=== PATIENT | female | born 1950 | race African-American/Black ===

== ENCOUNTER 2024-10-28 13:54 | Inpatient (IN) | payer MEDICARE, OTHER ==
[~2024-10-28] VITALS: Ht 149.9 cm; Wt 113.5 kg
[2024-10-28 16:03] LABS: BASOPHILS % (AUTO) 0.2 % (0.0-2.0); EOSINOPHILS # (AUTO) 0.1 K/uL (0.0-0.7); EOSINOPHILS % (AUTO) 1.4 % (0.0-6.0); HEMATOCRIT 41 % (33-45); HEMOGLOBIN 12.5 g/dL (11.5-14.8); LYMPHOCYTES % (AUTO) 11.5 % (20.0-44.0); MEAN CORPUSCULAR HEMOGLOBIN 23 PG (26.0-33.0); MEAN CORPUSCULAR HGB CONC 31 g/dl (31.0-36.0); MONOCYTES % (AUTO) 11.2 % (2.0-12.0); NEUTROPHILS # (AUTO) 6.9 K/uL (1.8-8.9); NEUTROPHILS % (AUTO) 75.7 % (43.0-81.0); PLATELET COUNT (AUTO) 165 K/uL (150-450); RED BLOOD CELL COUNT(AUTO) 5.48 MIL/uL (4.0-5.2); WHITE BLOOD COUNT (AUTO) 9.1 K/uL (4.3-11.0)
[2024-10-28 16:04] LABS: MEAN CORPUSCULAR VOLUME 74 fL (82-100)
[2024-10-28 16:11] LABS: CALCIUM, SERUM 8.9 mg/dL (8.5-10.1); CARBON DIOXIDE 29 mmol/L (21-32); CHLORIDE 105 mmol/L (98-107); CREATININE 1.6 mg/dL (0.6-1.3); GLUCOSE 76 mg/dL (74-106); SODIUM SERUM 138 mmol/L (136-145); UREA NITROGEN, BLOOD 23 mg/dL (7-18)
[2024-10-28 16:17] LABS: ALANINE AMINOTRANSFERASE 30 U/L (12-78); ALKALINE PHOSPHATASE 110 U/L (46-116); ASPARTATE AMINOTRANSFERASE 22 U/L (15-37); BILIRUBIN,DIRECT 0.1 mg/dL (0.0-0.2); BILIRUBIN,TOTAL 0.3 mg/dL (0.2-1.0); INR 0.94 (0.91-1.10); PARTIAL THROMBOPLASTIN TIME 23.4 SEC (24.3-34.3); PROTHROMBIN TIME 9.7 SECS (9.2-11.1); TOTAL PROTEIN, SERUM 7.9 g/dL (6.4-8.2)
[2024-10-28 16:51] LABS: LYMPHOCYTES % (MANUAL) 18 % (16-48); NEUTROPHILS % (MANUAL) 74 (42-76)
[2024-10-28 16:52] LABS: EOSINOPHILS % (MANUAL) 1 % (0-4); MONOCYTES % (MANUAL) 7 % (0-11.0)
[2024-10-28 16:53] LABS: APPEARANCE,URINE CLEAR (CLEAR); BILIRUBIN,URINE MODERATE (NEGATIVE); BLOOD, URINE Negative Ery/uL (NEGATIVE); COLOR,URINE YELLOW (YELLOW); KETONES,URINE 15 mg/dL (NEGATIVE); LEUKOCYTE ESTERASE ,URINE Trace (NEGATIVE); PH,URINE 5.5 (5.0-8.0); PROTEIN,URINE 30 mg/dl (NEGATIVE); UGLUCOSE Negative (NEGATIVE); UROBILINOGEN,URINE 0.2 EU/dL (0.2)
[2024-10-28] MEDS ORDERED: ATOR20TA PO (16:53)
[2024-10-28] MEDS ORDERED: ACET325T53 PO (16:53)
[2024-10-28] MEDS ORDERED: DIVA250T PO (16:53)
[2024-10-28] MEDS ORDERED: HYDR12.55 PO (16:53)
[2024-10-28] MEDS ORDERED: MELA5TAB PO (16:53)
[2024-10-28] MEDS ORDERED: TRAZ-182 PO (16:53)
[2024-10-28] MEDS ORDERED: CHOL100043 PO (16:53)
[2024-10-28] MEDS ORDERED: LITH300T3 PO (16:53)
[2024-10-28] MEDS ORDERED: OLAN10TA3 PO (16:53)
[2024-10-28] MEDS ORDERED: METO50TA16 PO (16:53)
[2024-10-28 16:54] LABS: NITRITE, URINE NEGATIVE (NEGATIVE)
[2024-10-28 16:56] LABS: ADD URINE CULTURE NO; BACTERIA,URINE Few /HPF (None Seen); SQUAMOUS EPITHELIAL CELL,UR Few /HPF (None Seen)
[2024-10-28] MEDS ORDERED: ACETAMINOPHEN 325 MG TABLET PO PRN (19:30)
[2024-10-28] MEDS ORDERED: Z GUARD REMEDY 4 OZ OINT TP PRN (19:30)
[2024-10-28] MEDS ORDERED: ONDANSETRON HCL/PF 4 MG/2 ML VIAL IVP PRN (19:30)
[2024-10-28] MEDS: ENOXAPARIN SODIUM 40 MG/0.4 ML DISP.SYRIN SQ SCH (19:55)
[2024-10-28] MEDS: IV NS 0.9% 1,000 ML BAG IV ONE (19:57)
[2024-10-28 20:00] VITALS: BP 115/67; TEMP 97.9; O2SAT 97
[2024-10-28] MEDS: CEPHALEXIN MONOHYDRATE 250 MG/5 ML BOTTLE PO SCH (21:00)
[2024-10-28] MEDS: OLANZAPINE 10 MG TABLET PO SCH (21:00)
[2024-10-28] MEDS: CEFTRIAXONE 1GM BAG (ER ONLY) 50 ML IV ONE (21:35)
[2024-10-28] MEDS: CEFTRIAXONE 1 G in IV D5W 50 ML IV SCH (21:39)
[2024-10-28] MEDS: TRAZODONE 50 MG TABLET PO SCH (22:00)
[2024-10-28] MEDS: IV NS 0.9% 1,000 ML IV PRN (22:00)
[2024-10-28] MEDS: ATORVASTATIN 10 MG TABLET PO SCH (22:00)
[2024-10-29] VITALS: BP 114/52; TEMP 98.2; O2SAT 98
[2024-10-29 00:42] LABS: CALCIUM, SERUM 8.5 mg/dL (8.5-10.1); CREATININE 1.5 mg/dL (0.6-1.3); POTASSIUM 3.4 mmol/L (3.5-5.1)
[2024-10-29 04:00] VITALS: BP 103/64; TEMP 98.4; O2SAT 97
[2024-10-29 06:57] LABS: BASOPHILS % (AUTO) 0.1 % (0.0-2.0); EOSINOPHILS # (AUTO) 0.1 K/uL (0.0-0.7); EOSINOPHILS % (AUTO) 1.6 % (0.0-6.0); HEMATOCRIT 37 % (33-45); HEMOGLOBIN 11.3 g/dL (11.5-14.8); LYMPHOCYTES % (AUTO) 13.7 % (20.0-44.0); MEAN CORPUSCULAR HEMOGLOBIN 23 PG (26.0-33.0); MEAN CORPUSCULAR HGB CONC 30 g/dl (31.0-36.0); MEAN CORPUSCULAR VOLUME 75 fL (82-100); NEUTROPHILS % (AUTO) 70.6 % (43.0-81.0); PLATELET COUNT (AUTO) 137 K/uL (150-450); RED CELL DISTRIBUTION WIDTH 15.8 % (11.5-15.0); WHITE BLOOD COUNT (AUTO) 7.1 K/uL (4.3-11.0)
[2024-10-29] MEDS: IV NS 0.9% 1,000 ML IV PRN (07:11)
[2024-10-29 07:13] LABS: CALCIUM, SERUM 8.5 mg/dL (8.5-10.1); CREATININE 1.4 mg/dL (0.6-1.3); MAGNESIUM 2.1 mg/dL (1.8-2.4); PHOSPHORUS 2.9 mg/dL (2.5-4.9); POTASSIUM 3.5 mmol/L (3.5-5.1)
[2024-10-29 08:00] VITALS: BP 108/63; TEMP 97.3; O2SAT 97
[2024-10-29] MEDS: METOPROLOL TARTRATE 50 MG TABLET PO SCH (09:00)
[2024-10-29] MEDS: POTASSIUM CL. PREMIX PERIPHER. 50 ML IV SCH (10:12)
[2024-10-29 11:46] LABS: THYROID STIMULATING HORMONE 3.75 uIU/mL (0.358-3.74)
[2024-10-29 12:00] VITALS: O2SAT 95
[2024-10-29 16:00] VITALS: BP 93/38; TEMP 97.5; O2SAT 97
[2024-10-29 17:58] LABS: CALCIUM, SERUM 8.5 mg/dL (8.5-10.1); CREATININE 1.2 mg/dL (0.6-1.3); POTASSIUM 3.6 mmol/L (3.5-5.1)
[2024-10-29 20:00] VITALS: BP 120/60; TEMP 98.4; O2SAT 96
[2024-10-29] MEDS: ENOXAPARIN SODIUM 30 MG/0.3 ML DISP.SYRIN SQ SCH (20:41)
[2024-10-29 22:44] LABS: CALCIUM, SERUM 8.8 mg/dL (8.5-10.1); CREATININE 1.1 mg/dL (0.6-1.3); POTASSIUM 3.9 mmol/L (3.5-5.1)
[2024-10-30 01:39] LABS: CREATININE, URINE 160.1 MG/DL (30.0-125.0); URINE TOTAL PROTEIN 34.7 mg/dL (0-11.9)
[2024-10-30 04:00] VITALS: BP 126/64; TEMP 98.5; O2SAT 97
[2024-10-30 05:21] LABS: CALCIUM, SERUM 8.5 mg/dL (8.5-10.1); CREATININE 1.2 mg/dL (0.6-1.3); POTASSIUM 3.6 mmol/L (3.5-5.1)
[2024-10-30 07:30] VITALS: BP 121/63; TEMP 98.4; O2SAT 97
[2024-10-30 08:00] VITALS: BP 121/63; TEMP 98.4; O2SAT 97
[2024-10-30 09:01] LABS: ALBUMIN 2.9 g/dL (3.4-5.0); BILIRUBIN,TOTAL 0.2 mg/dL (0.2-1.0); CREATININE 1.1 mg/dL (0.6-1.3); MAGNESIUM 1.9 mg/dL (1.8-2.4); PHOSPHORUS 2.4 mg/dL (2.5-4.9); POTASSIUM 3.8 mmol/L (3.5-5.1); TOTAL PROTEIN, SERUM 7.2 g/dL (6.4-8.2)
[2024-10-30 10:54] LABS: BASOPHILS % (AUTO) 0.1 % (0.0-2.0); EOSINOPHILS # (AUTO) 0.1 K/uL (0.0-0.7); EOSINOPHILS % (AUTO) 0.9 % (0.0-6.0); HEMATOCRIT 38 % (33-45); LYMPHOCYTES # (AUTO) 0.6 K/uL (0.8-4.8); LYMPHOCYTES % (AUTO) 6.1 % (20.0-44.0); MEAN CORPUSCULAR HEMOGLOBIN 23 PG (26.0-33.0); MEAN CORPUSCULAR HGB CONC 31 g/dl (31.0-36.0); MEAN CORPUSCULAR VOLUME 75 fL (82-100); MONOCYTES # (AUTO) 1.3 K/uL (0.1-1.30); MONOCYTES % (AUTO) 14.4 % (2.0-12.0); NEUTROPHILS # (AUTO) 7.1 K/uL (1.8-8.9); NEUTROPHILS % (AUTO) 78.5 % (43.0-81.0); PLATELET COUNT (AUTO) 147 K/uL (150-450); RED BLOOD CELL COUNT(AUTO) 5.11 MIL/uL (4.0-5.2); RED CELL DISTRIBUTION WIDTH 15.9 % (11.5-15.0); WHITE BLOOD COUNT (AUTO) 9.1 K/uL (4.3-11.0)
[2024-10-30 16:00] VITALS: BP 102/79; TEMP 98.1; O2SAT 98
[2024-10-30] MEDS: Sodium Phosphate 15 MMOL in IV NS 0.9% 245 ML IV SCH (17:31)
[2024-10-30 19:48] LABS: CREATININE 1.1 mg/dL (0.6-1.3); POTASSIUM 3.7 mmol/L (3.5-5.1)
[2024-10-30 20:00] VITALS: BP 134/69; TEMP 100.2; O2SAT 100
[2024-10-30 21:50] VITALS: TEMP 98.2; O2SAT 99
[2024-10-31] VITALS (7 sets, daily range): BP systolic 112–145; BP diastolic 64–89; TEMP 98.1–99.5; O2SAT 92–100
[2024-10-31 00:09] LABS: FOLIC ACID > 20.0 ng/mL (>3.0)
[2024-10-31 01:19] LABS: CALCIUM, SERUM 8.7 mg/dL (8.5-10.1); CREATININE 1.2 mg/dL (0.6-1.3); POTASSIUM 3.5 mmol/L (3.5-5.1)
[2024-10-31 06:31] LABS: CALCIUM, SERUM 9.1 mg/dL (8.5-10.1); CREATININE 1.1 mg/dL (0.6-1.3); PHOSPHORUS 2.6 mg/dL (2.5-4.9); POTASSIUM 3.6 mmol/L (3.5-5.1)
[2024-10-31] MEDS: IV 1/2NS 1000 ML 1,000 ML IV SCH (11:05)
[2024-11-01] VITALS: BP 109/74; TEMP 98.8; O2SAT 95
[2024-11-01 01:10] LABS: PTH, INTACT 76 pg/mL (15-65)
[2024-11-01 04:00] VITALS: BP_SYST 123; BP_DIAS 74; BP_DIAS 79; TEMP 98.6; O2SAT 93; O2SAT 96
[2024-11-01 06:46] LABS: POTASSIUM 3.5 mmol/L (3.5-5.1)
[2024-11-01 08:00] VITALS: BP 125/100; TEMP 99.3; O2SAT 94
[2024-11-01 08:09] LABS: *SPE A/G RATIO 0.8 (0.7-1.7); *SPE ALPHA-1-GLOBULIN 0.3 g/dL (0.0-0.4); *SPE ALPHA-2-GLOBULIN 0.7 g/dL (0.4-1.0); *SPE BETA GLOBULIN 0.9 g/dL (0.7-1.3); *SPE GLOBULIN, TOTAL 3.9 g/dL (2.2-3.9); *SPE M-SPIKE Not Observed g/dL (Not Observed); *SPE PROTEIN TOTAL 6.9 g/dL (6.0-8.5); *SPEGAMMA GLOBULIN 2.1 g/dL (0.4-1.8)
[2024-11-01] MEDS: IV D5W 1,000 ML IV ONE (10:37)
[2024-11-01 12:00] VITALS: BP 110/56; TEMP 99.7; O2SAT 96
[2024-11-01] MEDS ORDERED: CT SWABBABLE VALVE TRANS SET 1 EA INFUS.SET MC ONE (14:03)
[2024-11-01] MEDS ORDERED: IOHEXOL-350 100 ML VIAL IV ONE (14:03)
[2024-11-01 16:00] VITALS: BP 105/69; TEMP 98; O2SAT 100
[2024-11-01 20:00] VITALS: BP 113/74; TEMP 98.2; O2SAT 100
[2024-11-02] VITALS: BP 123/75; TEMP 98.1; O2SAT 92; O2SAT 94
[2024-11-02 04:00] VITALS: BP 135/79; TEMP 98.8; O2SAT 100
[2024-11-02 06:10] LABS: VITAMIN B1 THIAMINE,WB 71.8 nmol/L (66.5-200.0)
[2024-11-02 07:07] LABS: BASOPHILS % (AUTO) 0.2 % (0.0-2.0); EOSINOPHILS # (AUTO) 0.3 K/uL (0.0-0.7); EOSINOPHILS % (AUTO) 3.3 % (0.0-6.0); HEMATOCRIT 37 % (33-45); HEMOGLOBIN 11.4 g/dL (11.5-14.8); LYMPHOCYTES # (AUTO) 0.9 K/uL (0.8-4.8); MEAN CORPUSCULAR HEMOGLOBIN 24 PG (26.0-33.0); MEAN CORPUSCULAR HGB CONC 31 g/dl (31.0-36.0); MEAN CORPUSCULAR VOLUME 76 fL (82-100); MONOCYTES # (AUTO) 0.8 K/uL (0.1-1.30); NEUTROPHILS # (AUTO) 6.8 K/uL (1.8-8.9); NEUTROPHILS % (AUTO) 77.5 % (43.0-81.0); PLATELET COUNT (AUTO) 117 K/uL (150-450); RED BLOOD CELL COUNT(AUTO) 4.81 MIL/uL (4.0-5.2); RED CELL DISTRIBUTION WIDTH 16.9 % (11.5-15.0); WHITE BLOOD COUNT (AUTO) 8.7 K/uL (4.3-11.0)
[2024-11-02 07:32] LABS: CALCIUM, SERUM 9.1 mg/dL (8.5-10.1); MAGNESIUM 1.8 mg/dL (1.8-2.4); PHOSPHORUS 3.1 mg/dL (2.5-4.9)
[2024-11-02 08:00] VITALS: BP 131/63; TEMP 97.9; O2SAT 99
[2024-11-02] MEDS: IV D5W 1,000 ML IV ONE (09:36)
[2024-11-02] MEDS: IV D5W 1,000 ML IV SCH (10:53)
[2024-11-02 14:46] LABS: POTASSIUM 3.7 mmol/L (3.5-5.1)
[2024-11-02 16:00] VITALS: BP 112/70; TEMP 97.7; O2SAT 95
[2024-11-02 20:00] VITALS: BP 118/68; TEMP 97.7; O2SAT 100
[2024-11-03 07:30] VITALS: BP 129/59; TEMP 97.7; O2SAT 100
[2024-11-03] MEDS ORDERED: ALBUTEROL HALF STRENGTH 1.25 MG/3 ML VIAL.NEB NEB PRN (10:30)
[2024-11-03] MEDS ORDERED: IPRATROPIUM NEB FS 0.5 MG/2.5 ML AMPUL.NEB NEB PRN (10:30)
[2024-11-03 11:54] LABS: BASOPHILS % (AUTO) 0.2 % (0.0-2.0); EOSINOPHILS # (AUTO) 0.2 K/uL (0.0-0.7); EOSINOPHILS % (AUTO) 3.7 % (0.0-6.0); HEMATOCRIT 36 % (33-45); LYMPHOCYTES # (AUTO) 0.9 K/uL (0.8-4.8); LYMPHOCYTES % (AUTO) 16.5 % (20.0-44.0); MEAN CORPUSCULAR HEMOGLOBIN 23 PG (26.0-33.0); MEAN CORPUSCULAR HGB CONC 31 g/dl (31.0-36.0); MEAN CORPUSCULAR VOLUME 75 fL (82-100); MONOCYTES # (AUTO) 0.4 K/uL (0.1-1.30); MONOCYTES % (AUTO) 7.6 % (2.0-12.0); PLATELET COUNT (AUTO) 131 K/uL (150-450); RED BLOOD CELL COUNT(AUTO) 4.78 MIL/uL (4.0-5.2); RED CELL DISTRIBUTION WIDTH 16.6 % (11.5-15.0); WHITE BLOOD COUNT (AUTO) 5.5 K/uL (4.3-11.0)
[2024-11-03 12:11] LABS: CALCIUM, SERUM 9.4 mg/dL (8.5-10.1); CREATININE 0.9 mg/dL (0.6-1.3); MAGNESIUM 1.7 mg/dL (1.8-2.4); PHOSPHORUS 2.8 mg/dL (2.5-4.9); POTASSIUM 3.5 mmol/L (3.5-5.1)
[2024-11-03 16:00] VITALS: BP 121/74; TEMP 97.9; O2SAT 100
[2024-11-03] MEDS: Magnesium 1GM/D5W 100ML PREMIX 100 ML IV SCH (17:59)
[2024-11-03] MEDS ORDERED: Magnesium 1GM/D5W 100ML PREMIX PIGGYBACK IV ONE (18:00)
[2024-11-03 20:00] VITALS: BP 149/66; TEMP 97.9; O2SAT 98
[2024-11-04 07:01] LABS: BASOPHILS % (AUTO) 0.4 % (0.0-2.0); EOSINOPHILS # (AUTO) 0.2 K/uL (0.0-0.7); EOSINOPHILS % (AUTO) 3.5 % (0.0-6.0); HEMATOCRIT 33 % (33-45); HEMOGLOBIN 10.3 g/dL (11.5-14.8); LYMPHOCYTES # (AUTO) 1.2 K/uL (0.8-4.8); LYMPHOCYTES % (AUTO) 25.3 % (20.0-44.0); MEAN CORPUSCULAR HEMOGLOBIN 23 PG (26.0-33.0); MEAN CORPUSCULAR HGB CONC 32 g/dl (31.0-36.0); MEAN CORPUSCULAR VOLUME 74 fL (82-100); MONOCYTES # (AUTO) 0.5 K/uL (0.1-1.30); NEUTROPHILS # (AUTO) 2.9 K/uL (1.8-8.9); NEUTROPHILS % (AUTO) 59.8 % (43.0-81.0); PLATELET COUNT (AUTO) 126 K/uL (150-450); RED BLOOD CELL COUNT(AUTO) 4.39 MIL/uL (4.0-5.2); RED CELL DISTRIBUTION WIDTH 16.4 % (11.5-15.0); WHITE BLOOD COUNT (AUTO) 4.8 K/uL (4.3-11.0)
[2024-11-04 07:07] LABS: CALCIUM, SERUM 8.9 mg/dL (8.5-10.1); CREATININE 0.9 mg/dL (0.6-1.3); MAGNESIUM 2.1 mg/dL (1.8-2.4); PHOSPHORUS 3.2 mg/dL (2.5-4.9); POTASSIUM 3.5 mmol/L (3.5-5.1)
[2024-11-04 08:00] VITALS: BP 124/94; TEMP 98.8; O2SAT 99
[2024-11-04 08:28] VITALS: BP 124/99
[2024-11-04] MEDS: IV D5W 1,000 ML IV PRN (09:02)
== END 2024-11-04 15:25 | DRG 682 ==
LOC: ER 13:57 → MED 17:54 → TELE 10-29 00:07 → MED 11-02 14:44
PROVIDERS: ADMIT Nurse Practitioner Acute Care
DX: N17.9 Acute kidney failure, unspecified (principal); G92.8 Other toxic encephalopathy; E87.0 Hyperosmolality and hypernatremia; N39.0 Urinary tract infection, site not specified; Y92.129 Unspecified place in nursing home as the place of occurrence of the external cause; T43.595A Adverse effect of other antipsychotics and neuroleptics, initial encounter; I10 Essential (primary) hypertension; M19.90 Unspecified osteoarthritis, unspecified site; F32.A Depression, unspecified; Z79.899 Other long term (current) drug therapy; F25.0 Schizoaffective disorder, bipolar type; F39 Unspecified mood [affective] disorder; M89.8X9 Other specified disorders of bone, unspecified site
CPT/HCPCS: 36415; 70450-TC; 71045-TC; 76770-TC; 80048-TC; 80053-TC; 80061-TC; 80076-TC; 80164-TC; 80178-TC; 81001; 82550-TC; 82565-TC; 82570-TC; 82607-TC; 83735-TC; 83921; 83935-TC; 83970; 84100-TC; 84132-TC; 84155; 84165; 84295-TC; 84300-TC; 84425; 84443-TC; 84484-TC; 84520-TC; 85025-TC; 85730-TC; 87081-TC; 92526; 92611-TC; 97112-TC; 97530-TC; A4223; A9563; G0378; J0696; J1650; J3475; J3480; J3490; J7030; J7050; J7060; J7070; Q9967